=== PATIENT | male | born 1985 | race Caucasian/White ===

== ENCOUNTER → 2018-05-17 16:00 | Outpatient (CLI) | payer OTHER, SELFPAY | PROVIDERS: Family Provider Family Medicine; PCP Family Medicine | DX: Z23 Encounter for immunization (principal) | CPT/HCPCS: 90471; 90686 ==

== ENCOUNTER → 2019-06-06 15:19 | Outpatient (CLI) | payer OTHER, SELFPAY | PROVIDERS: PCP Family Medicine | DX: Z23 Encounter for immunization (principal) | CPT/HCPCS: 90471; 90686 ==

== ENCOUNTER → 2020-03-10 17:11 | Outpatient (CLI) | payer OTHER, SELFPAY ==
[2020-03-11 20:30] LABS: COVID19 Sendout Not Detected (Not Detect)
== END ==
PROVIDERS: PCP Family Medicine; Visit Provider Physician Assistant
DX: Z03.818 Encounter for observation for suspected exposure to other biological agents ruled out (principal)
CPT/HCPCS: 87635

== ENCOUNTER → 2020-07-21 | Outpatient (CLI) | payer OTHER, SELFPAY | PROVIDERS: PCP Family Medicine; Referring Provider Internal Medicine; Visit Provider Internal Medicine | DX: Z23 Encounter for immunization (principal) | CPT/HCPCS: 90471; 90686 ==

== ENCOUNTER 2022-06-29 13:57 | Emergency (ER) | payer OTHER, SELFPAY ==
[2022-06-29 14:01] VITALS: BP 129/77; PULSE 74; RESP 16; TEMP 36.9; O2SAT 97; BMI 36.5
--- NOTE | 2022-06-29 14:11 | ED.WOUNDLAC ---
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 He denies loss of consciousness, has a small laceration which is superficial to the crown of his scalp, denies a headache, difficulty concentrating, dizziness, weakness or loss of consciousness. Denies neck pain, he is ambulatory, states that he took ibuprofen already. This happened just prior to his arrival. He does not remember when his last tetanus was, agrees to have his tetanus vaccination updated today. Related Data Allergies Allergy/AdvReac Type Severity Reaction Status Date / Time cephalexin [From Keflex] Allergy Verified 06/29/22 14:09 Review of Systems <SHELBY Leal - Last Filed: 06/29/22 14:34> Review of Systems Narrative: Review of systems is negative for acute abnormalities unless otherwise noted in HPI Exam <SHELBY Leal - Last Filed: 06/29/22 14:34> Narrative Exam Narrative: Reviewed vitals signs and nursing notes. General: cooperative, comfortable, in no acute distress, well groomed HEENT: symmetrical facial expressions, moist mucous membranes, superficial laceration to the crown of his scalp, dermal layer does not separate, no bleeding, some blood present at the injury, no hematoma, contusion surrounding laceration without fluctuance, no palpable skull depression or fracture, without cervical spine tenderness to palpation, normal range of motion of his head and neck without pain MSK: moves all extremities, neurovascularly intact, no weakness, normal tone Skin: brisk capillary refill, without pallor or erythema small superficial laceration as stated above Neuro: normal speech and cognition, A&O x3, ambulatory, clear speech Psych: mental status is grossly normal, congruent mood, normal affect, pleasant and cooperative Initial Vital Signs Initial Vital Signs: Vital Signs Temperature 98.4 F 06/29/22 14:01 Pulse Rate 74 06/29/22 14:01 Respiratory Rate 16 06/29/22 14:01 Blood Pressure 129/77 06/29/22 14:01 Pulse Oximetry 97 06/29/22 14:01 Oxygen Delivery Method 06/29/22 14:01 <Lanny Mitchell DO - Last Filed: 06/30/22 08:26> Initial Vital Signs Initial Vital Signs: Vital Signs Temperature 98.4 F 06/29/22 14:01 Pulse Rate 74 06/29/22 14:01 Respiratory Rate 16 06/29/22 14:01 Blood Pressure 129/77 06/29/22 14:01 Pulse Oximetry 97 06/29/22 14:01 Oxygen Delivery Method 06/29/22 14:01 Course <Amy Lakhani [facility] - Last Filed: 06/29/22 14:34> Orders Ordered: Discontinued Medications Bacitracin (Bacitracin Oint 0.9 Gm Pckt) 1 applic TOP NOW ONE Stop: 06/29/22 14:10 Last Admin: 06/29/22 14:18 Dose: 1 applic Documented By: CTS Diphtheria/Tetanus/Acell Pertussis (Tet,Diph,Pertuss(Acell),Vac/Pf 0.5 Ml Syringe) 0.5 ml IM .ONCE ONE Stop: 06/29/22 14:12 Last Admin: 06/29/22 14:18 Dose: 0.5 ml Documented By: CTS Vital Signs Vital signs: Vital Signs - 8 hr 06/29/22 14:01 Temperature 98.4 F Pulse Rate 74 Respiratory Rate 16 Blood Pressure 129/77 Pulse Oximetry 97 Oxygen Delivery Method Room Air <Lanny Mitchell DO - Last Filed: 06/30/22 08:26> Orders Ordered: Discontinued Medications Bacitracin (Bacitracin Oint 0.9 Gm Pckt) 1 applic TOP NOW ONE Stop: 06/29/22 14:10 Last Admin: 06/29/22 14:18 Dose: 1 applic Documented By: CTS Diphtheria/Tetanus/Acell Pertussis (Tet,Diph,Pertuss(Acell),Vac/Pf 0.5 Ml Syringe) 0.5 ml IM .ONCE ONE Stop: 06/29/22 14:12 Last Admin: 06/29/22 14:18 Dose: 0.5 ml Documented By: CTS Vital Signs Vital signs: Vital Signs - 8 hr 06/29/22 14:01 Temperature 98.4 F Pulse Rate 74 Respiratory Rate 16 Blood Pressure 129/77 Pulse Oximetry 97 Oxygen Delivery Method Room Air MDM - Wound/Laceration <Amy Lakhani, [facility] - Last Filed: 06/29/22 14:34> [facility] Narrative Medical decision making narrative: This is a 36-year-old male who presents to the emergency department with a work-related injury, he stood up into an air conditioner sustaining a contusion and superficial laceration approximately 2 cm long and transverse across the crown of his scalp. Denies any LOC, nausea vomiting, neck pain, weakness, lightheadedness or dizziness. He is without any focal neuro deficits, denies any changes to his mentation or sensation. Was given strict return precautions for concussive symptoms, given I information about concussions and encouraged to rest if he has any of these symptoms. Pupils are equal and reactive, EOMI, patient's tetanus was updated. Discharge Plan Departure Patient Disposition: Home Clinical Impression: Work related injury, Superficial laceration Closed head injury Qualifiers: Encounter type: initial encounter Qualified Code(s): S09.90XA - Unspecified injury of head, initial encounter Instructions: Concussion, Closed Head Injury, DI for Minor Laceration Activity Restrictions/Additional Instructions: *You have been diagnosed with a work injury, a close head injury with a minor laceration which is nonsuturable. Please apply topical antibiotic ointment, keep it clean okay to shower but avoid sprain into the wound as it may delay the healing process. Please use Tylenol or ibuprofen or both as needed for your pain. If you have vomiting, vision changes, feel weak or any concerning symptoms, please come back for another evaluation. Please [id number] for any further needs related to this injury. Your tetanus was updated today, you do not need another for 10 years. *What to do: *Please continue to take your regular medications as directed. [ ] New medication prescriptions sent to your pharmacy: [ ] [ ] New medication written as a paper prescription [x ] No new medications given *Please follow up with your primary care provider in 2-3 days, call for an appointment. Let them know you were seen in the Emergency Department and that we asked that you be seen for follow-up. We will electronically transmit a record of today's note if your PCP is in our system *If you do not have a primary care provider please contact [phone] to establish care with one of [facility] primary care providers. *Return to Emergency Department if you should have any new, worsening, or concerning symptoms, such as [fever greater than 101F, chills, worsening pain, persistent vomiting or other bothersome symptoms]. Referrals: Addison Patel MD [Primary Care Provider] - Visit Report Forms: Patient Portal/API <Lanny Mitchell DO - Last Filed: 06/30/22 08:26> Cosign ED Attending Mariluzature Attestation: I was immediately available in the department for consultation. Documentation has been reviewed. I agree with assessment and plan.
[2022-06-29] MEDS: TET,DIPH,PERTUSS(ACELL),VAC/PF 0.5 ML SYRINGE IM (14:18)
[2022-06-29] MEDS: BACITRACIN OINT 0.9 GM PCKT 1 APPLIC TOP (14:18)
== END 2022-06-29 14:32 | disposition home or self-care (01) ==
PROVIDERS: Emergency Provider Nurse Practitioner Critical Care Medicine; PCP Family Medicine
DX: S09.90XA Unspecified injury of head, initial encounter (principal); S01.01XA Laceration without foreign body of scalp, initial encounter; W22.8XXA Striking against or struck by other objects, initial encounter; Y99.0 Civilian activity done for income or pay; Z23 Encounter for immunization
CPT/HCPCS: 90471; 99283; 90715